=== PATIENT | male | born 1970 | race Caucasian/White ===

== ENCOUNTER 2023-11-03 11:39 | Outpatient (OUT) | payer OTHER, SELFPAY ==
--- NOTE | 2023-11-03 | XR_ITS ---
The [address] [address] Patient Name: CHEYENNE LUNA MRN: [id number] date: 1970 Sex: M Assigned Patient Location: Current Patient Location: Accession/Order Number: [id number] Exam Date: 11/03/2023 11:39 Report Date: 11/03/2023 15:36 At the request of: KRANTHI MORALES Procedure: XR foot LT min 3V PROCEDURE: XR foot LT min 3V COMPARISON: None. HISTORY: LEFT FOOT PAIN FINDINGS: BONES:No acute fracture or dislocation. Mild enthesopathic spurring of the calcaneus at the Achilles insertion. Mild degenerative change along the medial first interphalangeal joint SOFT TISSUES:Negative. No visible soft tissue swelling. EFFUSION:None visible. OTHER: Negative. XR/XR foot LT min 3V IMPRESSION: Mild degenerative changes Electronically authenticated by: JACQUELINE DESAI Date: 11/03/2023 15:36
== END 2023-11-03 11:40 | disposition home or self-care (01) ==
PROVIDERS: Visit Provider Podiatrist Foot & Ankle Surgery
DX: M79.672 Pain in left foot (principal)
CPT/HCPCS: 73630